=== PATIENT | female | born 1960 | race Caucasian/White ===

== ENCOUNTER → 2016-05-18 | Outpatient (CLI) | payer OTHER ==
--- NOTE | 2016-05-18 13:24 | MA ---
Diagnostic Digital Left Mammography Clinical History: 56-year-old female who was noted to have a questionable asymmetric opacity versus o verlapping breast parenchymal tissue in the retroareolar aspect of the left breast on recent screenin g mammography. Technique: Digital mediolateral, and spot compression CC, MLO and true mediolateral views of the left breast are compared with previous exams dated April 08, 2016, March 20, 2015, March 12, 2014, September 11, 2012, April 05, 2011, March 26, 2010, March 25, 2009, and March 24, 2008. This ex amination was processed by the [employer] computer-aided detection system. Breast Density: Type B (scattered fibroglandular densities). CAD Evaluation: Reviewed. Findings: The area of parenchymal asymmetry seen on the recent left MLO tomosynthesis evaluation does not persist with spot compression, and appears to have been related to superimposition of normal fib roglandular structures. There is stable positioning of a previously placed [employer] clip distant fro m the area of concern today. Impression: Benign mammography. BI-RADS Category: 2. Recommendation: Routine annual mammographic screening. [facility] will send a result letter to the patient. Negative mammography should not preclude additional work-up of a clinically suspicious finding. The patient's information is entered into a reminder system with a target due date for her next mammo gram.
== END ==
LOC: FIMAGING 12:04
DX: Z12.39 Encounter for other screening for malignant neoplasm of breast (principal); R92.2 Inconclusive mammogram
CPT/HCPCS: G0206

== ENCOUNTER → 2017-04-10 | Outpatient (CLI) | payer OTHER | LOC: FIMAGING 12:43 | DX: Z12.31 Encounter for screening mammogram for malignant neoplasm of breast (principal) | CPT/HCPCS: G0202 ==